=== PATIENT | male | born 1960 | race Caucasian/White ===

== ENCOUNTER 2017-11-06 07:59 | Inpatient (IN) | payer BC, OTHER ==
[2017-10-05 08:17] VITALS: BMI 35.0
--- NOTE | 2017-10-05 08:57 | PAT Medication Instructions ---
Service Date Oct 05, 2017. Current Home Medication List Albuterol Hfa (Ventolin Hfa), 2-4 PUFFS INH Q6H PRN for SOB/Wheezing Enbhvna-Hzefdtsqbfrri-Jxzkpuov (Excedrin Extra Strength), 1 TAB PO Q6 PRN for Pain Diclofenac (Voltaren), 75 MG PO 1-2XWK PRN for Pain Jeblcsekoin-Uatxrmhziys-Kqr C- (Glucosamine Chondroitin), 1 CAP PO QAM Minocycline HCl (Minocycline HCl), 50 MG PO 3XWK Multiple Vitamin (Multivitamin), 1 TAB PO QAM [Zinc], 50 MG PO QAM Medication Instructions For Your Scheduled Surgery - Hold the following medications 2 weeks prior to surgery: Dmcvudoohqv-Izojgxfcskn-Mje C- (Glucosamine Chondroitin), 1 CAP PO QAM - Hold the following medications at least 3 days prior to surgery: Kyslovc-Qiawjsuxdiuxb-Ozluhbfa (Anacin), 1 TAB PO Q6 PRN for Pain - Hold the following medications the morning of surgery: Multiple Vitamin (Multivitamin), 1 TAB PO QAM [Zinc], 50 MG PO QAM Diclofenac (Voltaren), 75 MG PO 1-2XWK PRN for Pain (otherwise okay to continue per surgeon) - Take the following medications the morning of surgery with a sip of water OTHERWISE NOTHING TO EAT OR DRINK AFTER MIDNIGHT: Albuterol Hfa (Ventolin Hfa), 2-4 PUFFS INH Q6H PRN for SOB/Wheezing (USE IF NEEDED; BRING TO HOSPITAL) Minocycline HCl (Minocycline HCl), 50 MG PO 3XWK - Take the following medications as scheduled the night before surgery: Albuterol Hfa (Ventolin Hfa), 2-4 PUFFS INH Q6H PRN for SOB/Wheezing If you have any questions please call us at [phone] or [phone] or [phone]
--- NOTE | 2017-10-05 09:44 | DIAGNOSTIC IMAGING REPORT ---
CHEST 2 VIEWS ROUTINE HISTORY: 57 years-old Male PAT preoperative exam. No acute chest complaints. COMPARISON: Chest radiographs 05/31/2009 TECHNIQUE: PA and lateral views of the chest FINDINGS: Linear subsegmental bibasilar opacities. No pneumothorax, pleural effusion or lobar airspace consolidation. Cardiomediastinal and hilar silhouettes are within normal limits. Mild right hemidiaphragmatic elevation. Bones of the chest appear grossly intact. Cholecystectomy clips noted. IMPRESSION: Linear subsegmental bibasilar atelectasis without acute cardiopulmonary process. The above report was generated using voice recognition software. It may contain grammatical, syntax or spelling errors. Electronically signed by: Garcia Bar M.D. 10/05/2017 9:43 AM Dictated Date/Time: 10/05/2017 9:42 AM
[2017-10-05 09:57] LABS: BASO % 0.6 %; BASO ABS # 0.03 K/uL (0-0.2); EOS % 3.1 %; EOS ABS # 0.15 K/uL (0-0.5); HEMATOCRIT 45.8 % (42-52); HEMOGLOBIN 15.7 g/dL (14.0-18.0); LYMPH % 24.4 %; LYMPH ABS # 1.17 K/uL (1.2-3.4); MEAN CELL VOLUME 93.7 fL (80-100); MEAN CORPUSCULAR HEMOGLOBIN 32.1 pg (25-34); MEAN CORPUSCULAR HGB CONC 34.3 g/dl (32-36); MEAN PLATELET VOLUME 11.7 fL (7.4-10.4); MONO % 9.4 %; MONO ABS # 0.45 K/uL (0.11-0.59); NEUT % 62.5 %; NEUT ABS # 2.99 K/uL (1.4-6.5); PLATELET COUNT 174 K/uL (130-400); RED CELL DISTRIBUTION WIDTH CV 12.2 % (11.5-14.5); RED CELL DISTRIBUTION WIDTH SD 41.9 fL (36.4-46.3); WHITE BLOOD COUNT 4.79 K/uL (4.8-10.8)
[2017-10-05 10:07] LABS: INR 1.1 (0.9-1.1); PTT PATIENT 26.3 SECONDS (21.0-31.0)
[2017-10-05 10:59] LABS: CALCIUM 9.7 mg/dl (8.5-10.1); CREATININE 0.93 mg/dl (0.60-1.40); POTASSIUM 4.3 mmol/L (3.5-5.1)
--- NOTE | 2017-11-01 21:17 | HISTORY & PHYSICAL EXAMINATION ---
DATE OF ADMISSION: 11/06/2017 CHIEF COMPLAINT: Bilateral knee pain and discomfort, left side greater than right. HISTORY OF PRESENT ILLNESS: The patient is a 57-year-old gentleman who now presents for surgical treatment of his left knee. He has a long history of bilateral knee pain and discomfort. He has had a knee arthroscopy in both sides in the past. He continues to be bothered by knee pain. He has had injections which provide a little bit more relief to the right side than the left. He is limited in his activities. He cannot walk or hike like he would like to do the pain. He has good and bad days but have more and more bad days. It is limiting his lifestyle. He would like to proceed with surgery. He does take some diclofenac, which takes the edge off it at best. He has tried different anti-inflammatories with less relief. PAST MEDICAL HISTORY: 1. Asthma. 2. TMJ. 3. Neck arthritis. 4. Kidney stones. PAST SURGICAL HISTORY: Includes: 1. Cholecystectomy. 2. Left knee arthroscopy. 3. Right knee arthroscopy. 4. Foot surgery. ALLERGIES: PENICILLIN. CURRENT MEDICATIONS: Include: 1. Ventolin inhaler. 2. Diclofenac. 3. Minocycline. SOCIAL HISTORY: A 57-year-old male. He does not smoke. Two drinks per week. FAMILY HISTORY: Negative for heart disease, diabetes, or blood clots. REVIEW OF SYSTEMS: Negative for diabetes, neurologic problems, vascular problems, bleeding disorders. Denies any chest pain, no shortness of breath. No history of DVT or PE. PHYSICAL EXAMINATION: GENERAL: Physical examination reveals a healthy, pleasant, middle-aged male. He looks to be in good health. HEENT: Benign. NECK: Supple. No lymphadenopathy. LUNGS: Clear to auscultation. HEART: Regular rate and rhythm. ABDOMEN: Soft, nontender, nondistended. EXTREMITIES: Grossly neurovascularly intact except as follows: Examination of the left knee reveals patient ambulates independently. He has slight varus alignment to his knee. He has well healed portal sites from his knee arthroscopy. Range of motion is about 5-120. No instability. No pain with hip motion. X-RAYS: X-ray of the left knee reviewed. It shows advanced left knee DJD. He has complete loss of his medial joint space. He has osteophytes of the medial femoral condyle and medial tibial plateau. ASSESSMENT: A 57-year-old male with a history of bilateral knee arthroscopy in the past with advanced bilateral knee degenerative joint disease, left side more symptomatic than right. He would like to have his left knee replaced. He has failed conservative treatment and is affecting his lifestyle. PLAN: We will take him to the operating room and do a left total knee replacement. The risks and benefits of this procedure were explained to the patient including but not limited to DVT, PE, , infection, neurological injury, vascular injury, bleeding problems, pain, limited range of motion, stiffness, failure to relieve the symptoms, incomplete relief of symptoms, need for further surgery in the future, fracture, leg length inequality, nerve palsy, persistent pain, etc. The patient understands and desires to proceed. Informed consent was obtained. As far as discharge plans, he is planning to be discharged to home. He apparently does not have [employer] privileges.
[2017-11-06] VITALS (9 sets, daily range): BP systolic 110–154; BP diastolic 67–85; PULSE 48–60; TEMP 36.4–37.1; O2SAT 94–100; Ht 182.9 cm; Wt 119.2 kg
[~2017-11-06] VITALS: Ht 182.9 cm; Wt 119.2 kg
[~2017-11-06 07:59] MED LIST: ACETAMINOPHEN 500 MG TAB PO SCH; ASPI-391 PO; BUPIVACAINE 0.25% 30 ML VIAL ONE; BUPIVACAINE 0.5 % 5 MG/1 ML PF 10ML VIAL ONE; BUPIVACAINE LIPOSOME 266 MG, BUPIVACAINE/EPINEPHRINE INJ 50 ML, SODIUM CHLORIDE 0.9% PF... INFIL SCH; CEFAZOLIN 2000MG IV PUSH 15 ML IV SCH; DEXAMETHASONE SOD INJ 4 MG/ML VIAL ONE; DICL-201 PO; EpINEphrine INJ 1MG/ML AMP 1 MG/ML AMP ONE; FAMOTIDINE 20 MG TAB PO SCH; FENTANYL CITRATE INJ 50 MCG/1 ML 2 ML VIAL ONE; GABAPENTIN 300 MG CAP PO SCH; GLUC1CAP35 PO; LACTATED RINGER'S 1000ML 1,000 ML IV SCH; LACTATED RINGER'S 1000ML IV SCH; LACTATED RINGER'S 500 ML IV SCH; METOCLOPRAMIDE HCL 10 MG TAB PO SCH; MIDAZOLAM HCL 1 MG/ML 2ML VIAL ONE; MNC50 PO; MULTTAB58 PO; SCOPOLAMINE 1.5 MG TDSY TD SCH; TRANEXAMIC ACID INJ 1,000 MG in SYRINGE 0 ML IV SCH; VNTHFA/IN INH; ZINC PO
--- NOTE | 2017-11-06 08:39 | History & Physical Bridge Note ---
H&P Re-Evaluation Bridge Note: I have examined the patient, reviewed the History & Physical and in the interval since the performance of the History & Physical I have noted the following changes of clinical significance: No changes noted
[2017-11-06] MEDS ORDERED: LIDOCAINE HCL 2% 2 ML VIAL (20MG/ML) ONE (09:52)
[2017-11-06] MEDS ORDERED: ONDANSETRON INJ 2 MG/ML 2 ML VIAL ONE (09:52)
[2017-11-06] MEDS ORDERED: PROPOFOL IV EMULSION 10 MG/ML 20 ML VIAL IV ONE (09:52)
[2017-11-06] MEDS ORDERED: FENTANYL CITRATE INJ 50 MCG/1 ML 2 ML VIAL ONE (11:00)
[2017-11-06] MEDS ORDERED: BUPIVACAINE LIPOSOME 1/3% 266 MG/20 ML VIAL INFIL ONE (11:09)
[2017-11-06] MEDS ORDERED: BACITRACIN 50000 UNIT VIAL ONE (11:09)
[2017-11-06] MEDS ORDERED: BUPIVACAINE/EPINEPHRINE 0.25% 1:200,000 30 ML VIAL ONE (11:09)
[2017-11-06] MEDS ORDERED: SODIUM CHLORIDE 0.9% PF 50 ML VIAL ONE (11:09)
[2017-11-06] MEDS ORDERED: FENTANYL CITRATE INJ 50 MCG/1 ML 2 ML VIAL IV PRN (11:30)
[2017-11-06] MEDS ORDERED: EpHEDrine SULFATE INJ 50 MG/ML AMP IV PRN (11:30)
[2017-11-06] MEDS ORDERED: ATROPINE SULFATE 0.1 MG/ML 5ML SYR IV PRN (11:30)
[2017-11-06] MEDS ORDERED: ONDANSETRON INJ 2 MG/ML 2 ML VIAL IV PRN ×2 (11:30→13:15)
[2017-11-06] MEDS ORDERED: MIDAZOLAM HCL 1 MG/ML 2ML VIAL ONE (11:44)
[2017-11-06] MEDS ORDERED: EpHEDrine SULFATE 50MG/5ML SYR ONE (12:30)
--- NOTE | 2017-11-06 13:05 | [facility] Post Operative Brief Note ---
Immediate Operative Summary Operative Date Nov 06, 2017. Pre-Operative Diagnosis Advanced left knee degenerative joint disease. Post-Operative Diagnosis Advanced left knee degenerative joint disease. Procedure(s) Performed Left total knee arthroplasty. Surgeon Dr. Avila Dat Instructor Surgeon(s) Yony Pate PA-C Estimated Blood Loss 50ML Findings Consistent with Post-Op Diagnosis Fluids (cc crystalloids) 1300 cc Specimens A. Left knee bone and tissue. Drains None Anesthesia Type MAC Spinal Regional Complication(s) none Disposition Accompanied Pt To Recover: no Disposition: Recovery Room / PACU
[2017-11-06] MEDS ORDERED: MAGNESIUM HYDROXIDE SUSP 30 ML UDC PO PRN (13:15)
[2017-11-06] MEDS ORDERED: ZOLPIDEM TARTRATE 5 MG TAB PO PRN (13:15)
[2017-11-06] MEDS ORDERED: TAMSULOSIN HCL 0.4 MG CAP PO PRN (13:15)
[2017-11-06] MEDS ORDERED: SILVER SULFADIAZINE 1% CR 50 GM JAR EXT PRN (13:15)
[2017-11-06] MEDS ORDERED: ALBUTEROL HFA 8 GM INHALER INH PRN (13:15)
[2017-11-06] MEDS ORDERED: DiphenhydrAMINE HCL 50 MG/ML VIAL IV PRN (13:15)
[2017-11-06] MEDS ORDERED: ALUMINUM/MAGNESIUM/SIMETH (MAALOX MAX) 30 ML UDC PO PRN (13:15)
[2017-11-06] MEDS ORDERED: MoRPHine SULFATE 2 MG/ML CARP IV PRN (13:15)
[2017-11-06] MEDS ORDERED: METOCLOPRAMIDE HCL INJ 5 MG/ML 2 ML VIAL IV PRN (13:15)
[2017-11-06] MEDS ORDERED: BISACODYL 10 MG SUPP PR PRN (13:15)
--- NOTE | 2017-11-06 13:44 | DIAGNOSTIC IMAGING REPORT ---
TWO VIEWS LEFT KNEE CLINICAL HISTORY: Postoperative examination. FINDINGS: AP and crosstable lateral portable views of the left knee are obtained. A left knee arthroplasty is in near anatomic alignment. There has been undersurface remodeling of the patella. No acute fracture is seen. There are expected postoperative changes around the knee including skin clips, soft tissue edema, and subcutaneous gas. IMPRESSION: Expected postoperative changes status post left knee arthroplasty. No acute fracture is seen. Electronically signed by: Kyle Bowman M.D. 11/06/2017 1:43 PM Dictated Date/Time: 11/06/2017 1:43 PM
--- NOTE | 2017-11-06 13:53 | Anesthesiology Progress Note ---
Anesthesia Post Op Note Date & Time Nov 06, 2017 at 13:53 Vital Signs Pain Intensity: 0 Vital Signs Past 12 Hours Date Time Temp Pulse Resp B/P (MAP) Pulse Ox O2 Delivery O2 Flow Rate FiO2 11/06/17 13:50 50 13 114/65 99 Nasal Cannula 2 11/06/17 13:40 36.1 51 17 112/65 99 Nasal Cannula 2 11/06/17 13:30 57 17 102/61 99 Nasal Cannula 2 11/06/17 13:20 63 16 111/56 98 Nasal Cannula 2 11/06/17 13:14 36.1 70 19 85/63 96 Nasal Cannula 2 11/06/17 08:35 36.7 57 18 137/81 94 Room Air Notes Mental Status: alert / awake / arousable, participated in evaluation Pt Amnestic to Procedure: Yes Nausea / Vomiting: adequately controlled Pain: adequately controlled Airway Patency, RR, SpO2: stable & adequate BP & HR: stable & adequate Hydration State: stable & adequate Neuraxial Anesthesia: was administered, sensory block is resolving Anesthetic Complications: no major complications apparent
--- NOTE | 2017-11-06 14:49 | OPERATIVE REPORT ---
DATE OF OPERATION: 11/06/2017 SURGEON: Aris Avila MD DATA MINER: EZ Rush PREOPERATIVE DIAGNOSIS: Left knee degenerative joint disease. POSTOPERATIVE DIAGNOSIS: Same. PROCEDURE PERFORMED: Left cemented posterior stabilized total knee arthroplasty. COMPLICATIONS: None. ESTIMATED BLOOD LOSS: 50 mL. FLUID REPLACEMENT: 1300 mL crystalloid fluid replacement. ANESTHESIA: Spinal with adductor canal block. DRAINS: None. SPECIMENS: Left knee sent for pathology. TOURNIQUET TIME: 62 minutes at 300 mmHg. OPERATIVE INDICATIONS: The patient is a 57-year-old very active gentleman who has had a long history of bilateral knee problems. He has had both of his knees scoped in the past. Over the years, he developed increased pain and discomfort in both knees, left side more so than the right. It is really affecting his lifestyle and his ability to going recreational walks in height. He elected to proceed with total knee arthroplasty. OPERATIVE FINDINGS: Operative findings revealed advanced left knee DJD. He had extensive grade 4 changes of the medial side of his knee with a varus deformity to his knee. Osteophytes in all 3 compartments, most severe in the medial side. Moderate-sized knee effusion. OPERATIVE IMPLANTS: Operative implants consisted of: 1. Biomet Vanguard size 70 left posterior stabilized femoral component. 2. Biomet size 79 tibial tray. 3. A 12-mm posterior stabilized polyethylene insert. 4. A 31 x 8 all poly patella. OPERATIVE PROCEDURE: The patient was taken to the operating room, identified and placed on the operative table in the supine position. All contact areas were appropriately padded. IV antibiotics were provided by the anesthesia team. A spinal anesthetic and adductor canal block had been provided in the holding area. Blackwell catheter was placed in the sterile fashion. A left thigh tourniquet was then placed and left lower extremity was then prepped and draped in the usual sterile fashion. The left leg was elevated and exsanguinated with Esmarch and tourniquet was placed at 300 mmHg. An anterior approach to the left knee was then performed through a longitudinal incision centered over the patella. Sharp dissection was carried out through the subcutaneous tissues down to the level of the extensor mechanism. Medial parapatellar arthrotomy incision was made. Some subperiosteal dissection was carried out medially. I did do a pretty extensive medial and posteromedial release due to his flexion contracture preoperatively as well as his fixed varus deformity. The fat pad was resected from beneath the patellar tendon. The lateral patellofemoral ligament was released. The patella was everted and knee was flexed. The osteophytes were taken off the distal femur. The ACL and PCL were then released from the distal femur and the tibia subluxated anteriorly. The external tibial alignment jig was then placed in the anterior face of the tibia and adjusted 14 mm medially. Proximal tibial cut was made just above and flushed with the most deficient aspect of the posteromedial tibial plateau. This did take a fairly large piece off laterally. The osteophytes were removed. The tibia was sized to a size 79. Attention was then drawn to the femur. The distal femur was entered with a sharp drill. Intramedullary canal was suctioned. A left 6-degree valgus cutting guide was placed. The distal femoral cutting block was pinned in place. Distal femoral cut was made to take an additional 3 mm of bone off the distal femur. The femur was then sized to a size 70. It was downsized slightly. The AP cutting block was pinned parallel to the epicondylar axis, which was 5 degrees of external rotation. The anterior cut, anterior chamfer, posterior cut, and posterior chamfer cuts were made. Box cutting guide was placed and adjusted slightly lateral and the box cut was made. The knee was flexed. The remnants of the medial and lateral menisci were excised. The osteophytes were taken off the posterior aspect of the femur. Trial femoral component was placed. Tibial tray was pinned in maximum external rotation and the drill and stem punch were used to create defect in proximal tibia for the tibial tray. The knee was then trialed and the 12-mm insert fit most appropriately. Attention was then drawn to the patella. The patella was cleaned of all soft tissues. Patella thickness measured 22 mm in thickness and it was cut down to about 13. It was sized to a size 31 patella. It was fairly oblong and we had to really kind of downsize this to be fit on the patella. The lug holes were drilled for the 31 patella. The lateral osteophyte was removed. Patella button was placed. Knee was taken through range of motion and the patella tracked nicely with no thumbs test. Attention was then drawn toward placement of permanent components. All trial components were removed. A bone plug was placed in the distal femur to limit blood loss. A double batch of Palacos G cement was mixed. A left size 70 posterior stabilized femoral component, size 79 tibial tray, a 12-mm posterior stabilized polyethylene insert, and a 31 x 8 all poly patella then cemented in place. Knee was brought out into full extension until cement hardened. A final cement check was then performed. Pericapsular tissues were injected with a total of 100 mL of a combination of 20 mL of Exparel, 30 mL of normal saline, and 50 mL of 0.25% Marcaine with epinephrine. The patient did receive 1 gram of tranexamic acid. The tourniquet was then let down for a tourniquet time of 62 minutes. Hemostasis was assured with the use of electrocautery. The wound was once again irrigated. The extensor mechanism was then closed with a combination of #1 PDS suture and #1 Vicryl suture in a [id number] fashion. Extensor mechanism was checked and found to be intact. The subcutaneous tissues were then closed with 2-0 Dexon suture in a buried interrupted fashion. Skin was closed with skin ryan. Leg was then cleaned and dried and a sterile dressing of Xeroform, 4 x 4, sterile cast padding and Angel bandage were applied. The patient was then transferred to the recovery room in stable condition. The patient tolerated the procedure well with no complications. All needle and sponge counts were correct at the end of the operation. I attest to the content of the Intraoperative Record and any orders documented therein. Any exception s are noted below.
[2017-11-06] MEDS: D5W AND 1/2NSS + 20MEQ KCL 1,000 ML IV SCH ×2 (15:34→22:07)
[2017-11-06] MEDS: CHECK SCOPOLAMINE PATCH PLACEMENT SCH (15:34)
[2017-11-06] MEDS: [UNRECOGNIZED DRUG - OTHER] SCH (15:35)
[2017-11-06] MEDS: KETOROLAC TROMETHAMINE 30 MG/ML VIAL IV. SCH ×2 (16:12→22:07)
[2017-11-06] MEDS: OXYCODONE HCL IR 5 MG TAB (IMMEDIATE RELEASE) PO PRN ×2 (17:21→18:24)
[2017-11-06] MEDS: FERROUS GLUCONATE 324 MG TAB PO SCH (18:25)
[2017-11-06] MEDS ORDERED: TRANEXAMIC ACID INJ 1,000 MG in SODIUM CHLORIDE 0.9% 100ML 100 ML IV SCH (19:00)
[2017-11-06] MEDS: CEFAZOLIN IV 2,000 MG in SYRINGE 0 ML IV SCH (20:07)
[2017-11-06] MEDS: DOCUSATE SODIUM 100 MG CAP PO SCH (20:42)
[2017-11-06] MEDS: ASPIRIN 325 MG ECTAB PO SCH (20:42)
[2017-11-06] MEDS: TAPENTADOL ER 50 MG TABCR PO SCH (20:42)
[2017-11-06] MEDS: SENNA 8.6 MG TAB PO SCH (20:43)
[2017-11-07] VITALS (7 sets, daily range): BP systolic 105–131; BP diastolic 66–82; PULSE 47–65; TEMP 36.7–37; O2SAT 94–99
[2017-11-07] MEDS: CEFAZOLIN IV 2,000 MG in SYRINGE 0 ML IV SCH (03:58)
[2017-11-07] MEDS: KETOROLAC TROMETHAMINE 30 MG/ML VIAL IV. SCH ×4 (03:58→21:33)
[2017-11-07] MEDS: D5W AND 1/2NSS + 20MEQ KCL 1,000 ML IV SCH ×2 (04:42→11:29)
[2017-11-07 07:48] LABS: HEMATOCRIT 39.5 % (42-52); HEMOGLOBIN 13.4 g/dL (14.0-18.0); MEAN CELL VOLUME 93.2 fL (80-100); MEAN CORPUSCULAR HEMOGLOBIN 31.6 pg (25-34); MEAN CORPUSCULAR HGB CONC 33.9 g/dl (32-36); MEAN PLATELET VOLUME 11.2 fL (7.4-10.4); PLATELET COUNT 146 K/uL (130-400); RED CELL DISTRIBUTION WIDTH CV 12.5 % (11.5-14.5); RED CELL DISTRIBUTION WIDTH SD 42.1 fL (36.4-46.3); WHITE BLOOD COUNT 10.75 K/uL (4.8-10.8)
--- NOTE | 2017-11-07 07:54 | PROGRESS NOTE ---
DATE: 11/07/2017 SUBJECTIVE: A 57-year-old gentleman postop day 1 from a left knee replacement. He is doing pretty well. Pain is controlled. Had a pretty good night. No chest pain or shortness of breath. Not feeling dizzy or lightheaded. OBJECTIVE: VITAL SIGNS: Temperature 36.8. Vital signs stable. GENERAL: Reveals a healthy, pleasant, middle-aged male. He is lying in bed, looks pretty comfortable. EXTREMITIES: Examination of the left leg reveals the dressing to be clean, dry and intact. No drainage. He can dorsiflex and plantarflex his foot appropriately. He can do a good straight leg raise. LABORATORY DATA: Labs are pending. ASSESSMENT: A 57-year-old gentleman postop day 1 from a left knee replacement, doing well. Pain is controlled. He is neurologically intact. PLAN: 1. DVT prophylaxis including thigh-high TEDs, SCDs, and aspirin twice a day. 2. PT/OT. Weight bear as tolerated. Left total knee protocol. 3. Pain control, doing well with current pain regimen. 4. Disposition: Plan to discharge to home. His going to do outpatient therapy once medically recovered and stable.
[2017-11-07] MEDS: CHECK SCOPOLAMINE PATCH PLACEMENT SCH ×4 (08:00→23:39)
[2017-11-07] MEDS: [UNRECOGNIZED DRUG - OTHER] SCH ×4 (08:00→23:39)
[2017-11-07 08:28] LABS: CALCIUM 8.6 mg/dl (8.5-10.1); CREATININE 0.96 mg/dl (0.60-1.40); POTASSIUM 4.3 mmol/L (3.5-5.1)
[2017-11-07] MEDS: MULTIVITAMIN TAB PO SCH (08:28)
[2017-11-07] MEDS: ASPIRIN 325 MG ECTAB PO SCH ×2 (08:28→21:32)
[2017-11-07] MEDS: DOCUSATE SODIUM 100 MG CAP PO SCH ×2 (08:28→21:33)
[2017-11-07] MEDS: ZINC SULFATE 220 MG CAP PO SCH (08:28)
[2017-11-07] MEDS: FERROUS GLUCONATE 324 MG TAB PO SCH ×3 (08:28→17:49)
[2017-11-07] MEDS: PANTOprazole SOD 40 MG TAB PO SCH (08:29)
[2017-11-07] MEDS: TAPENTADOL ER 50 MG TABCR PO SCH ×2 (08:32→21:31)
[2017-11-07] MEDS: OXYCODONE HCL IR 5 MG TAB (IMMEDIATE RELEASE) PO PRN ×3 (08:32→20:13)
[2017-11-07] MEDS ORDERED: MULTIVITAMIN TAB PO SCH (09:00)
--- NOTE | 2017-11-07 10:09 | Anesthesiology Progress Note ---
Anesthesia Post Op Note Date & Time Nov 07, 2017 at 10:08 Vital Signs Pain Intensity: 2.0 Vital Signs Past 12 Hours Date Time Temp Pulse Resp B/P (MAP) Pulse Ox O2 Delivery O2 Flow Rate FiO2 11/07/17 07:40 Room Air 11/07/17 07:18 36.8 56 17 105/67 (80) 96 Room Air 11/07/17 03:04 36.9 47 16 119/67 (84) 96 Room Air 11/07/17 00:15 94 Room Air 11/06/17 23:09 36.7 53 16 110/67 (81) 96 Room Air 11/06/17 22:30 51 Notes Mental Status: alert / awake / arousable, participated in evaluation Pt Amnestic to Procedure: Yes Nausea / Vomiting: adequately controlled Pain: adequately controlled Airway Patency, RR, SpO2: stable & adequate BP & HR: stable & adequate Hydration State: stable & adequate Neuraxial Anesthesia: was administered, sensory block resolved Anesthetic Complications: no major complications apparent
[2017-11-07] MEDS ORDERED: ACET-24 PO (11:24)
[2017-11-07] MEDS ORDERED: ASPEC325 PO (11:24)
[2017-11-07] MEDS ORDERED: RXC5 PO (11:24)
--- NOTE | 2017-11-07 11:26 | Discharge Instructions ---
Discharge Instructions Date of Service Nov 07, 2017. Admission Reason for Admission: Left Knee Degenerative Joint Disease Discharge Discharge Diagnosis / Problem: Left Knee Replacement Discharge Goals Goal(s): Decrease discomfort, Improve function, Increase independence, Improve disease control, Therapeutic intervention Activity Recommendations Activity Limitations: per Instructions/Follow-up section Weightbearing Status: Left weightbearing . Instructions / Follow-Up Instructions / Follow-Up ACTIVITY RECOMMENDATIONS: Physical Therapy: * You will go to physical therapy three times each week for four to six weeks after your surgery in order to regain your knee range of motion and to retrain your knee to work properly. * It is just as important to make sure you are getting your knee perfectly straight as it is to regain your knee bend. * Taking a pain pill an hour before therapy can help you have a more productive and comfortable therapy session. Home Exercise: * You were shown a series of exercises (heel props, heel slides, etc.) in the hospital. Do these exercises three to four times each day including the exercises you were shown in physical therapy. Walking: * Get up and walk several times each day. For the first four weeks, try not to stand or walk for more than one hour at a time. If you do stand or walk for more than one hour, you will not hurt anything, but your knee and leg will likely swell. * As you feel comfortable, you may change from the walker or crutches to a cane and then to independent walking. MEDICATIONS: New Medicine: * You will likely be taking one or more of these medications: 1. Oxycodone - A quick and shorter-acting pain medication. Take one to two tablets every four to six hours to lessen your pain. 2. Aspirin - Thins your blood to lessen the chance of forming a blood clot. * The most common side effects of pain medicine and iron are nausea and constipation. If nausea or constipation is too much of a problem or if you have any questions about your new medicines or doses, call [facility] at [phone]. We will try to help you manage these issues. VERY IMPORTANT TO READ AND REVIEW" Pain: * The immediate post-operative period after knee replacement surgery is often quite painful. * You are given a prescription for pain medicine. You should take it, as directed, when you need it, especially before physical therapy and before going to bed. Pain that interferes with sleep is very common and can last several months. * You will likely need pain medicine for the first four to six weeks. It will not stop all of the pain. The pain will lessen and as you feel better, you may change to milder pain medicine such as Tylenol. * The most common side effects of pain medicine are nausea and constipation, so don't take more than you need. SPECIAL CARE INSTRUCTIONS: TEDs/Elastic Stockings: * The white elastic stockings help limit swelling and prevent blood clots from forming in your legs. The more you wear them, the more they work. * Wear them for six weeks after knee replacement surgery and four weeks after partial knee replacement. Prevention of Infection: * Take antibiotics one hour before any dental cleaning, dental work, urological procedure, gastrointestinal procedure or any invasive surgery in order to prevent your new joint from getting infected. * You may get the antibiotics from the doctor performing the procedure or you may call our office at before and we will call in a prescription to the pharmacy of your choice. Things to Watch For: * Drainage from the incision site that occurs more than one week after your surgery. * Severely increased knee/leg pain or swelling. * Increased redness at the incision site. * Fever above 102 degrees Fahrenheit. * Unusual chest pain or shortness of breath. * Unusual pain or burning with urination. Call [facility] at with any of the above problems or if you have any questions about your medicines or recovery. FOLLOW UP VISIT: Make an appointment to see your doctor for approximately two weeks after surgery for a progress check and staple removal by calling the office at . Current Hospital Diet Patient's current hospital diet: Regular Diet Discharge Diet Recommended Diet: Regular Diet Procedures Procedures Performed: Left total knee arthroplasty. Pending Studies Studies pending at discharge: no Medical Emergencies . Who to Call and When: Medical Emergencies: If at any time you feel your situation is an emergency, please call [phone] immediately. . Non-Emergent Contact Non-Emergency issues call your: Surgeon . "Provider Documentation" section prepared by Aris Avila. . VTE Core Measure Inpt VTE Proph given/why not?: Other Anticoagulation, T.E.D. Stockings, SCD's
[2017-11-07] MEDS: ACETAMINOPHEN 500 MG TAB PO SCH (17:49)
[2017-11-07] MEDS: SENNA 8.6 MG TAB PO SCH (21:32)
[2017-11-08] MEDS: ACETAMINOPHEN 500 MG TAB PO SCH ×2 (01:30→09:27)
[2017-11-08] MEDS: KETOROLAC TROMETHAMINE 30 MG/ML VIAL IV. SCH ×2 (03:47→09:28)
[2017-11-08 06:31] VITALS: BP 110/82; PULSE 66; TEMP 36.8; O2SAT 98
--- NOTE | 2017-11-08 07:39 | PROGRESS NOTE ---
DATE: 11/08/2017 SUBJECTIVE: A 57-year-old gentleman postop day #2 from a left knee replacement. He is doing well. Pain is controlled. Therapy has gone well. No chest pain or shortness of breath. OBJECTIVE: VITAL SIGNS: Temperature 36.8. Vital signs stable. GENERAL: Reveals a healthy, pleasant, middle-aged male. He is sitting up in bed and looks pretty comfortable. Doing a heel prop. EXTREMITIES: Examination of the left leg reveals the dressing to be clean, dry and intact. Leg is well aligned. He can dorsiflex and plantarflex his foot appropriately. NEUROLOGICAL: He is neurologically intact. ASSESSMENT: A 57-year-old gentleman postop day #2 from a left knee replacement, doing well. His pain is controlled. PLAN: 1. DVT prophylaxis including thigh-high TEDs, SCDs, and aspirin twice a day. 2. PT/OT. Weightbear as tolerated. Left total knee protocol. 3. Doing pretty well with current pain regimen. 4. Disposition: Plan to discharge to home. He is going to outpatient therapy later today.
[2017-11-08] MEDS: CHECK SCOPOLAMINE PATCH PLACEMENT SCH (07:47)
[2017-11-08] MEDS: [UNRECOGNIZED DRUG - OTHER] SCH (07:47)
[2017-11-08] MEDS: FERROUS GLUCONATE 324 MG TAB PO SCH (07:48)
[2017-11-08] MEDS: DOCUSATE SODIUM 100 MG CAP PO SCH (07:48)
[2017-11-08] MEDS: MULTIVITAMIN TAB PO SCH (07:48)
[2017-11-08] MEDS: PANTOprazole SOD 40 MG TAB PO SCH (07:49)
[2017-11-08] MEDS: ASPIRIN 325 MG ECTAB PO SCH (07:49)
[2017-11-08] MEDS: ZINC SULFATE 220 MG CAP PO SCH (07:49)
[2017-11-08] MEDS: TAPENTADOL ER 50 MG TABCR PO SCH (07:54)
[2017-11-08] MEDS: OXYCODONE HCL IR 5 MG TAB (IMMEDIATE RELEASE) PO PRN (07:54)
[2017-11-08 08:11] VITALS: BP 110/82; PULSE 66; TEMP 36.8; O2SAT 98
== END 2017-11-08 10:42 | disposition home or self-care (01) | DRG 470 ==
LOC: C.ACU 07:59 → C.3E 09:02 → ENRESERV 13:43
PROVIDERS: ADMIT Orthopaedic Surgery Sports Medicine; ATTEND Orthopaedic Surgery Sports Medicine
PROC: 0SRD0J9 Replacement of Left Knee Joint with Synthetic Substitute, Cemented, Open Approach (ICD-10-PCS; principal; 2017-11-06 10:50)
DX: M17.0 Bilateral primary osteoarthritis of knee (principal); J45.909 Unspecified asthma, uncomplicated; Z79.899 Other long term (current) drug therapy; Z79.1 Long term (current) use of non-steroidal anti-inflammatories (NSAID); Z88.0 Allergy status to penicillin

== ENCOUNTER 2023-12-11 09:17 | Observation (INO) ==
--- NOTE | 2023-11-26 10:36 | PAT Medication Instructions ---
Medication Instructions Date of Service November 26, 2023 Home Medications Medication Instructions Recorded clindamycin HCl 300 mg capsule 600 mg (2 x 300 mg) PO ONCE #2 caps 05/14/23 diclofenac sodium 75 mg tablet,delayed release 75 mg PO 4XWK PRN glucosamine sulf dipot chlr,msm,chond 550 mg-C 30 mg-damien 1 mg capsule (Glucosamine Chondroitin) 1 cap PO QAM ibuprofen 200 mg tablet 200 mg PO Q6H PRN multivitamin 1 tab PO QAM zinc 50 mg tablet 50 mg PO QAM Lactobacillus acidophilus 10 billion cell capsule (Probiotic) 10,000 mmu cells PO QAM albuterol 90 mcg/actuation aerosol inhaler 90 mcg inhalation Q4H PRN aspirin 81 mg tablet 81 mg PO QAM docusate sodium 100 mg capsule (Colace) 100 mg PO QAM clindamycin HCl 300 mg capsule 600 mg (2 x 300 mg) PO ONCE ascorbic acid (vitamin C) 1,000 mg tablet (Vitamin C) 1 g PO QAM Continue as directed clindamycin HCl 300 mg capsule 600 mg (2 x 300 mg) PO ONCE ASK your surgeon for instructions diclofenac sodium 75 mg tablet,delayed release 75 mg PO 4XWK PRN ibuprofen 200 mg tablet 200 mg PO Q6H PRN ASK your prescriber and surgeon aspirin 81 mg tablet 81 mg PO QAM STOP taking 2 weeks before surgery (or as soon as possible if surgery is within 2 weeks) glucosamine sulf dipot chlr,msm,chond 550 mg-C 30 mg-damien 1 mg capsule (Glucosamine Chondroitin) 1 cap PO QAM DO NOT take the morning of surgery multivitamin 1 tab PO QAM zinc 50 mg tablet 50 mg PO QAM Lactobacillus acidophilus 10 billion cell capsule (Probiotic) 10,000 mmu cells PO QAM docusate sodium 100 mg capsule (Colace) 100 mg PO QAM ascorbic acid (vitamin C) 1,000 mg tablet (Vitamin C) 1 g PO QAM Take morning of surgery With a small sip of water, OTHERWISE NOTHING TO EAT OR DRINK AFTER MIDNIGHT: albuterol 90 mcg/actuation aerosol inhaler 90 mcg inhalation Q4H PRN(use if needed; please bring with you to hospital day of surgery if possible) Take evening before surgery albuterol 90 mcg/actuation aerosol inhaler 90 mcg inhalation Q4H PRN(if needed) Other Notes If you have any questions please call us at [phone] or [phone] or [phone] or [phone]
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
[~2023-12-11 09:17] MED LIST changes: -ACETAMINOPHEN 500 MG TAB PO SCH; -ASPI-391 PO; -BUPIVACAINE 0.25% 30 ML VIAL ONE; -BUPIVACAINE 0.5 % 5 MG/1 ML PF 10ML VIAL ONE; -BUPIVACAINE LIPOSOME 266 MG, BUPIVACAINE/EPINEPHRINE INJ 50 ML, SODIUM CHLORIDE 0.9% PF... INFIL SCH; -CEFAZOLIN 2000MG IV PUSH 15 ML IV SCH; -DEXAMETHASONE SOD INJ 4 MG/ML VIAL ONE; -DICL-201 PO; -EpINEphrine INJ 1MG/ML AMP 1 MG/ML AMP ONE; -FAMOTIDINE 20 MG TAB PO SCH; -FENTANYL CITRATE INJ 50 MCG/1 ML 2 ML VIAL ONE; -GABAPENTIN 300 MG CAP PO SCH; -GLUC1CAP35 PO; -LACTATED RINGER'S 1000ML 1,000 ML IV SCH; -LACTATED RINGER'S 1000ML IV SCH; -LACTATED RINGER'S 500 ML IV SCH; -METOCLOPRAMIDE HCL 10 MG TAB PO SCH; -MIDAZOLAM HCL 1 MG/ML 2ML VIAL ONE; -MNC50 PO; -MULTTAB58 PO; +ROPIVACAINE 0.5% 5 MG/ML 30 ML VIAL ONE; -SCOPOLAMINE 1.5 MG TDSY TD SCH; -TRANEXAMIC ACID INJ 1,000 MG in SYRINGE 0 ML IV SCH; -VNTHFA/IN INH; -ZINC PO
[2023-12-11] MEDS ORDERED: PROPOFOL IV EMULSION 10 MG/ML 20 ML VIAL IV ONE ×3 (09:34→12:46)
[2023-12-11] MEDS ORDERED: MIDAZOLAM HCL 1 MG/ML 2ML VIAL ONE (09:34)
[2023-12-11] MEDS: ACETAMINOPHEN 500 MG TAB PO SCH ×2 (09:58→14:46)
[2023-12-11] MEDS: Scopolamine 1 MG TDSY TD SCH (09:59)
[2023-12-11] MEDS: dexAMETHasone**PF** 10 MG/ML VIAL IV SCH (09:59)
[2023-12-11] MEDS: CeleBREX 200 MG CAP PO SCH (09:59)
[2023-12-11] MEDS: FAMOTIDINE 20 MG TAB PO SCH (09:59)
[2023-12-11] MEDS: LR 60ML/HR IV SCH (10:00)
[2023-12-11] MEDS: LR 500ML BOLUS, THEN 15ML/HR IV SCH (10:01)
[2023-12-11] MEDS: METOCLOPRAMIDE HCL 10 MG TABLET PO SCH (10:10)
[2023-12-11] MEDS ORDERED: ePHEDrine sulfate 50 MG/ML AMP IV PRN (10:13)
[2023-12-11] MEDS ORDERED: ATROPINE SULFATE 0.1 MG/ML 10ML SYR IV PRN (10:13)
[2023-12-11] MEDS ORDERED: HYDROmorphone INJ 2 MG/ML SYR/VIAL IV PRN (10:13)
[2023-12-11] MEDS ORDERED: ONDANSETRON INJ 2 MG/ML 2 ML VIAL IV PRN ×2 (10:13→14:03)
[2023-12-11] MEDS ORDERED: fentaNYL citrate PF 100 MCG/2 ML VIAL IV PRN (10:13)
--- NOTE | 2023-12-11 10:47 | History & Physical Bridge Note ---
Date of Service December 11, 2023 History & Physical Bridge Note I have examined the patient, reviewed the History & Physical and in the interval since the performance of the History & Physical I have noted the following changes of clinical significance: no changes noted
[2023-12-11] MEDS: ceFAZolin 2000MG 2,000 MG/15 ML SYR IV SCH ×2 (11:13→19:41)
[2023-12-11] MEDS ORDERED: ePHEDrine sulfate 50 MG/5 ML SYR ONE (11:34)
[2023-12-11] MEDS: ORTHO JOINT ANESTHETIC ONE (11:44)
[2023-12-11] MEDS ORDERED: KETOROLAC 30 MG/ML VIAL ONE (11:50)
[2023-12-11] MEDS ORDERED: ONDANSETRON INJ 2 MG/ML 2 ML VIAL ONE (11:50)
[2023-12-11] MEDS: TRANEXAMIC ACID 1,000 MG **IV Intra-op IV SCH (12:12)
[2023-12-11] MEDS: ROPIV 0.5% 246mg, Ketorolac 30mg, EPINEPHrine 0.5mg in NSS INFIL SCH (12:42)
--- NOTE | 2023-12-11 13:04 | Operative Report ---
PG Post Operative Report Pre & Post Diagnosis Operation Date: 12/11/23 10:40 Pre-Op Diagnosis: Right Knee Degenerative Joint Disease Post-Op Diagnosis: Right Knee Degenerative Joint Disease I identified the patient and participated in the time-out.: Yes Procedure Operation Date: 12/11/23 10:40 Actual Procedures p Right Total Knee Arthroplasty(Right) - Aris Avila MD Surgeon Aris Avila MD Environmental Engineering Manager Zafar Pate PA-C Estimated Blood Loss 15 Findings Consistent with Post-Op Diagnosis Operative findings revealed advanced right knee tricompartment DJD. He had grade 4 [id number] disease in all 3 compartments most severe medially with extensive left eburnation medially. Moderate-sized joint effusion. Slight flexion contracture. Fixed varus deformity. Specimens Right knee sent for pathology. Anesthesia Type Spinal MAC Complications none Disposition Accompanied Patient To Recovery: No Indications Patient is a 63-year-old very active gentleman said a long history of knee problems. He had his left knee replaced 6 years or so ago and is done well with this. Continued be limited by right knee pain discomfort that is gradually gotten worse over time. Failed conservative measures. He elected proceed with total knee arthroplasty. Description of Procedure Operative implants consist of: 1. Biomet Vanguard size 72.5 right posterior stabilized femoral component. 2. Biomet size 79 tibial tray. 3. 10 mm post stabilized polyethylene insert. 4. 34 x 8 and half all poly patella. The patient was taken the operating, identified, placed on the operating table in the supine position. All contact areas were appropriately padded. IV antibiotics tried by anesthesia team. A spinal anesthetic and adductor canal block had been provided in the holding area. Right thigh turn was then placed. The right lower extremity was then prepped and draped in usual sterile fashion. The right leg was elevated and exsanguinated with use of an Esmarch and a turn was placed at 300 mmHg. An anterior approach to the right knee was then performed to longitudinal incision centered over the patella. Sharp dissection was carried through subcutaneous tissue down the extensor mechanism. A medial parapatellar arthrotomy incision was made. Some subperiosteal dissection was carried out medially. The fat pad was resected from Neath patella tendon. Lateral patellofemoral ligament was released. Patella subluxated laterally and the knee was flexed. The osteophytes taken on distal femur. The ACL and PCL were then released from the distal femur and the tibia subluxated anteriorly. The external tibial alignment jig was then placed anterior face of the tibia and adjusted 14 mm medially. Proximal tibial cut was made essentially flush with the most deficient aspect of the posterior medial tibial plateau. Some osteophytes taken off medial and posterior medially. The tibia sized to a size 79. Attention drawn the femur. The distal femur where the sharp drop with intramedullary canal was suction. A right 6 degree valgus cutting guide was placed. The distal femoral cutting block was pinned in place. Distal femoral cut was made to take an additional 3 mm of bone off distal femur. The femur was then sized to a size 72.5. The AP cutting block was pinned parallel to the epicondylar axis which was 4 degrees of external rotation. The anterior cut, anterior chamfer, posterior cut, posterior chamfer cuts were made. The box cutting guide was placed in the just slight lateral and the box cut was made. The knee was flexed. The remnants of the medial and lateral menisci were excised. The osteophytes taken off the posterior aspect the femur. A trial femoral component was placed. The tibial tray was pinned Machelle external rotation and the drill and stem punch used to create the defect in proximal tibia for the tibial tray. Knee was then trialed and 10 mm insert fit most appropriately. Attention drawn the patella. The patella is cleaned of all soft tissue. Patella thickness measured 24 mm in thickness was cut down to 14 mm. It was sized to a size 34 patella. The lug holes were drilled for 34 patella. The lateral osteophyte was removed. Patella button was placed. Knee was taken through range of motion patella tracked nicely with no thumbs test. Attention drawn to place the permanent components. Nupathe all trial components were removed. Bone plug was placed in the distal femur limit blood loss. Double batch Palacos G cement was mixed. Biomet Vanguard size 72.5 right Po stabilized femoral component, a size 79 tibial tray, a 10 mm post stabilized polyethylene insert, and a 34 x 8-1/2 all poly patella were then cemented in place. The knee was brought out into full extension till cement hardened. Final cement check was then performed. The pericapsular tissues were injected with total 100 cc of orthopedic joint mix. The patient did receive 1 g tranexamic acid. The tourniquet was then let down for final tourniquet time of 60 minutes. Hemostasis assured use electrocautery. Extensor Meclomen closed with combination 1 PDS suture #1 Vicryl suture in a [id number] fashion. Extensor Meclomen checked found to be intact and subcutaneous tissues then closed with 2 Dexon suture in a buried interrupted fashion skin was closed skin ryan. Leg was then cleaned and dried and sterile dressing with Xeroform, 4 fours, sterile cast padding, Angel bandage were applied. Patient then transferred to the recovery in stable condition. Patient tolerated procedure well and there are no complications. Zafar Pate, my physician temporary administrative assistant, was present for the entire procedure. His assistance was essential and required for appropriate patient positioning, prepping and draping, surgical exposure, performing the technical details of the operation, placement the implants, closure of the wound, and placement of the sterile bandage. I attest to the content of the Intraoperative Record and any orders documented therein. Any exceptions are noted below.
--- NOTE | 2023-12-11 13:26 | Anesthesiology Progress Note ---
Date of Service December 11, 2023 Anesthesia Post Procedure Vital Signs Vital Signs: Temp Pulse Pulse Resp BP Pulse Ox O2 Del Method 12/11/23 13:20 69 14 113/65 96 Room Air 12/11/23 13:10 73 15 115/70 99 Oxymask 12/11/23 13:00 36.4 C L 75 10 L 114/63 96 Oxymask 12/11/23 09:50 36.7 C 62 20 125/81 95 Room Air O2 Flow Rate 12/11/23 13:20 12/11/23 13:10 4 12/11/23 13:00 6 12/11/23 09:50 Transfer of Care Handoff Completed per policy Notes Mental Status: alert / awake / arousable and participated in evaluation Patient Amnestic to Procedure: Yes Nausea / Vomiting: adequately controlled Pain: adequately controlled Airway Patency, RR, SpO2: stable & adequate BP & HR: stable & adequate Hydration State: stable & adequate Neuraxial Anesthesia: was administered and sensory block is resolving Anesthetic Complications: no major complications apparent and Pt Satisfied with anesthetic care
[2023-12-11] MEDS ORDERED: ALUMINUM/MAGNESIUM SUSP 30 ML UDC PO PRN (14:03)
[2023-12-11] MEDS ORDERED: METOCLOPRAMIDE HCL INJ 5 MG/ML 2 ML VIAL IV PRN (14:03)
[2023-12-11] MEDS ORDERED: bisacodyL 10 MG SUPP PR PRN (14:03)
[2023-12-11] MEDS ORDERED: MAGNESIUM HYDROXIDE SUSP 30 ML UDC PO PRN (14:03)
[2023-12-11] MEDS ORDERED: NALOXONE HCL 0.4 MG/1 ML VIAL/CARP IV PRN (14:03)
[2023-12-11] MEDS ORDERED: HYDROmorphone INJ 0.5 MG/0.5 ML SYR IV PRN (14:03)
[2023-12-11] MEDS: SODIUM CHLORIDE 0.9% 1,000 ML IV SCH (14:12)
[2023-12-11] MEDS ORDERED: ALBUTEROL HFA 8 GM INHALER INH PRN (14:26)
[2023-12-11] MEDS: Scopolamine CHECK PATCH PLACEMENT SCH (15:34)
[2023-12-11] MEDS: KETOROLAC TROMETHAMINE 15 MG/ML VIAL IV SCH (15:34)
--- NOTE | 2023-12-11 15:34 | XRay Report ---
XR knee RT 1 or 2V routine CLINICAL HISTORY: Postoperative evaluation. COMPARISON: Right knee radiographs November 29, 2023. FINDINGS: Alignment of the total right knee arthroplasty is anatomic. There is no periprosthetic fra cture or unexpected radiopaque foreign body. There are skin ryan. IMPRESSION: Expected findings following total right knee arthroplasty. ACT 112: Negative or not required by law. Electronically signed by: Cruz López M.D. 12/11/2023 3:33 PM
[2023-12-11] MEDS: COUGH DROP (SUGAR FREE) LOZ 24 LOZ/1 BOX BUCCAL ONE (15:35)
[2023-12-11] MEDS: ASCORBIC ACID 500 MG TAB PO SCH (17:31)
[2023-12-11] MEDS: TRANEXAMIC ACID / 0.7% NACL 1,000 MG/100 ML BAG IV SCH (18:16)
[2023-12-11] MEDS: SENNA 8.6 MG TAB PO SCH (19:47)
[2023-12-11] MEDS: DOCUSATE SODIUM 100 MG CAP PO SCH (19:47)
[2023-12-11] MEDS ORDERED: SENNA 8.6 MG TAB PO SCH (21:00)
[2023-12-11] MEDS: oxyCODONE HCL IR 5 MG TAB (IMMEDIATE RELEASE) PO PRN (22:49)
[2023-12-12 07:00] LABS: Hematocrit (blood only) 38.2 % (42.0-52.0); Hemoglobin 12.5 g/dl (14.0-18.0); Mean Corpuscular Hgb Conc 32.7 g/dL (32.0-36.0); Mean Corpuscular Volume 94.8 fL (80.0-100.0); Mean Platelet Volume 11.6 fL (9.4-12.4); Platelet Count 190 K/uL (130-400); RDW Coefficient of Variation 12.3 % (11.5-14.5); RDW Standard Deviation 42.9 fL (36.4-46.3); Red Blood Count 4.03 M/uL (4.70-6.10); White Blood Count 13.96 K/ul (4.8-10.8)
[2023-12-12 07:19] LABS: BUN Creatinine Ratio 15.7 (10-20); Creatinine Clr Calc Pharmacy 94.5 ml/min; Est GFR (Non-African American) 76.8 ml/min
[2023-12-12] MEDS: ADVANCED PROBIOTIC 625 MG CAPSULE PO SCH (07:54)
[2023-12-12] MEDS: MULTIVITAMIN TAB PO SCH (07:55)
[2023-12-12] MEDS: ASPIRIN 81 MG ECTAB PO SCH (07:56)
[2023-12-12] MEDS: ZINC SULFATE 220 MG CAPSULE PO SCH (07:56)
[2023-12-12] MEDS: TAMSULOSIN HCL 0.4 MG CAP PO SCH (07:57)
[2023-12-12] MEDS: dexAMETHasone 10 MG in SYRINGE 0 ML IV SCH (07:59)
[2023-12-12] MEDS ORDERED: NON-FORMULARY MEDICATION (Multivitamin Tablet) PO SCH (09:00)
[2023-12-12] MEDS ORDERED: NON-FORMULARY MEDICATION (Glucos Sul 2kcl-Msm-Chond-C-Mn [Glucosamine Chondroitin] 550-30- PO SCH (09:00)
[2023-12-12] MEDS ORDERED: NON-FORMULARY MEDICATION (Ascorbic Acid (Vitamin C) [Vitamin C] 1,000 mg Tablet) PO SCH (09:00)
[2023-12-12] MEDS ORDERED: DOCUSATE SODIUM 100 MG CAP PO SCH (09:00)
--- NOTE | 2023-12-12 10:22 | Orthopedic Progress Note ---
Date of Service December 12, 2023 Assessment & Plan (1) Status post right knee replacement: Overall, he is doing quite well today with good pain control to the right knee. He will work with physical therapy later this morning to work on ambulation and range of motion exercises. He is currently on Xarelto for DVT prophylaxis. He can be discharged home later this morning pending physical therapy evaluation. He will follow-up with Dr. Avila in 2 weeks for postoperative management. The patient was seen by myself Aris Avila and examined. Agree with the findings as described above. His pain is controlled. He is neurologically intact. Did well in therapy. Should be good to go home with outpatient [facility]. Betty Roth was seen and evaluated this morning resting comfortably in bed in no apparent distress. He notes that his pain is well-controlled to the right knee. He has been up and out of bed with no significant issues. He has yet to work with physical therapy this morning. He denies any other concerns today. Review of Systems All systems reviewed & are unremarkable except as noted in HPI & below. Physical Exam . On physical examination of the right knee, his dressings are clean, dry, and intact. His leg is out in full extension. He has active plantarflexion dorsiflexion to the right ankle. +2 DP and PT pulses. Less than 2-second capillary refill. Normal sensation. Neurovascular intact. Results & Data Results & Data Laboratory Results . Diagnostic Findings . Postoperative x-rays of the right knee show prosthesis to be in anatomical alignment with no signs of fracture complication or loosening. PG Care Time/CCT Total # of Minutes Spent Total Time Spent with Patient: Total time spent is greater than 50% in coordination of care (as documented) at patient's floor/unit and/or counseling patient: Coding Level of Care Code 43279 Post Operative Follow-Up Diagnoses Status post right knee replacement Z96.651
--- NOTE | 2023-12-12 10:24 | Discharge Summary ---
Date of Service December 12, 2023 Principal Diagnosis Same as "Discharge Diagnosis" noted below under Discharge Instructions. Discharge Exam . On physical examination of the right knee, his dressings are clean, dry, and intact. His leg is out in full extension. He has active plantarflexion dorsiflexion to the right ankle. +2 DP and PT pulses. Less than 2-second capillary refill. Normal sensation. Neurovascular intact. Discharge Data Procedures Performed Operation Date: 12/11/23 10:40 Actual Procedures p Right Total Knee Arthroplasty(Right) - Aris Avila MD Ordered Studies 12/11/23 05:00 US - OR guided needle placemen Routine Hospital Course (1) Status post right knee replacement: On December 11, 2023 Gonzalez arrived at [facility] and underwent a right total knee arthroplasty performed by Dr. Avila with no complications. He had a spinal anesthetic. Postoperatively, he was transferred to the PACU for immediate postoperative management and then transferred to the general orthopedic floor in stable condition. His hospital course was uneventful. On postoperative day #1, his vital signs were stable and his pain was well- controlled. He was started on Xarelto for DVT prophylaxis. He participated well with physical therapy working on ambulation and range of motion exercises. He was then discharged home in stable condition. He will follow-up in [address] Avila for postoperative management. PG Care Time/CCT Total # of Minutes Spent Total Time Spent with Patient: Total time spent is greater than 50% in coordination of care (as documented) at patient's floor/unit and/or counseling patient: Discharge Plan Discharge Items Patient Disposition: Home - Home Health Services Reason For Visit: Right Knee Degenerative Joint Disease Discharge Diagnosis: Right Knee Replacement Activity: Per Instructions section Weightbearing: Full weightbearing Non-emergency contact: Surgeon Call non-emergency contact if: you have any medication questions Follow-up/Referrals: Gary Awad [Primary Care Provider] - Diet: Regular Addtl Attending Provider Instructions: ACTIVITY RECOMMENDATIONS: Physical Therapy: * You will go to physical therapy three times each week for four to six weeks after your surgery in order to regain your knee range of motion and to retrain your knee to work properly. * It is just as important to make sure you are getting your knee perfectly straight as it is to regain your knee bend. * Taking a pain pill an hour before therapy can help you have a more productive and comfortable therapy session. Home Exercise: * You were shown a series of exercises (heel props, heel slides, etc.) in the hospital. Do these exercises three to four times each day including the exercises you were shown in physical therapy. Walking: * Get up and walk several times each day. For the first four weeks, try not to stand or walk for more than one hour at a time. If you do stand or walk for more than one hour, you will not hurt anything, but your knee and leg will likely swell. * As you feel comfortable, you may change from the walker or crutches to a cane and then to independent walking. MEDICATIONS: New Medicine: * You will likely be taking one or more of these medications: 1. Oxycodone - A quick and shorter-acting pain medication. Take one to two tablets every six hours to lessen your pain. 2. Xarelto - Thins your blood to lessen the chance of forming a blood clot. * The most common side effects of pain medicine and iron are nausea and constipation. If nausea or constipation is too much of a problem or if you have any questions about your new medicines or doses, call [facility] at . We will try to help you manage these issues. "VERY IMPORTANT TO READ AND REVIEW" Pain: * The immediate post-operative period after knee replacement surgery is often quite painful. * You are given a prescription for pain medicine. You should take it, as directed, when you need it, especially before physical therapy and before going to bed. Pain that interferes with sleep is very common and can last several months. * You will likely need pain medicine for the first four to six weeks. It will not stop all of the pain. The pain will lessen and as you feel better, you may change to milder pain medicine such as Tylenol. * The most common side effects of pain medicine are nausea and constipation, so don't take more than you need. SPECIAL CARE INSTRUCTIONS: TEDs/Elastic Stockings: * The white elastic stockings help limit swelling and prevent blood clots from forming in your legs. The more you wear them, the more they work. * Wear them for six weeks after knee replacement surgery and four weeks after partial knee replacement. Incision Site Care: * Remove dressing postoperative day 2 and then shower. Keep direct shower pressure off the incision site. * After showering, cover ryan with dry gauze and change daily or more frequently if the dressing is getting saturated with drainage. * Use the JOSÉ MIGUEL stockings to hold dressing in place. DO NOT apply tape on the skin. * May completely stop using bandage if wound is dry and no drainage * Trin[place] are removed between 2 and 3 weeks post-op. If your follow-up appointment is made before 2 weeks, please have your appointment re- scheduled. It is too early to remove the ryan. Prevention of Infection: * Take antibiotics one hour before any dental cleaning, dental work, urological procedure, gastrointestinal procedure or any invasive surgery in order to prevent your new joint from getting infected. * You may get the antibiotics from the doctor performing the procedure or you may call our office at [phone] before and we will call in a prescription to the pharmacy of your choice. Things to Watch For: * Drainage from the incision site that occurs more than one week after your surgery. * Severely increased knee/leg pain or swelling. * Increased redness at the incision site. * Fever above 102 degrees Fahrenheit. * Unusual chest pain or shortness of breath. * Unusual pain or burning with urination. Call [facility] at [phone] with any of the above problems or if you have any questions about your medicines or recovery. FOLLOW UP VISIT: Make an appointment to see your doctor for approximately two weeks after surgery for a progress check and staple removal by calling the office at [phone]. Pending Studies at Discharge: No Stand-Alone Forms: [facility], Smoking Cessation Medications and DC Order Prescriptions: Continued sennosides [Senokot] 8.6 mg tablet 8.6 mg PO BID 14 Days Qty: 28 0RF Rx Instructions: Take two times a day to prevent/treat constipation acetaminophen [Tylenol Extra Strength] 500 mg tablet 1,000 mg PO TID 30 Days Qty: 180 0RF Rx Instructions: Take 3 times per day to lessen pain. ondansetron 4 mg tablet,disintegrating 4 mg PO Q8 PRN (Reason: nausea) Qty: 20 1RF Rx Instructions: Take as needed for nausea oxycodone 5 mg tablet 5 - 10 mg PO Q6 PRN (Reason: pain) Qty: 40 0RF Rx Instructions: Take as needed for pain cefadroxil 500 mg capsule 500 mg PO BID 7 Days Qty: 14 0RF Rx Instructions: Take 1 cap twice a day to prevent infection tamsulosin [Flomax] 0.4 mg capsule 0.4 mg PO DAILY Qty: 7 0RF Rx Instructions: Begin night BEFORE surgery to prevent urinary retention Xarelto 10 mg tablet 10 mg PO DAILY 30 Days Qty: 30 0RF Rx Instructions: Take 1 tablet daily for 30 days to prevent blood clots clindamycin HCl 300 mg capsule 600 mg PO ONCE Qty: 2 2RF Rx Instructions: take one hour prior to dental appointment multivitamin Tablet 1 tab PO QAM zinc 50 mg Tablet 50 mg PO QAM Glucosamine Chondroitin 550-30-1 mg Capsule 1 cap PO QAM ascorbic acid (vitamin C) [Vitamin C] 1,000 mg Tablet 1 g PO QAM aspirin 81 mg Tablet 81 mg PO QAM docusate sodium [Colace] 100 mg Capsule 100 mg PO QAM albuterol 90 mcg/actuation Aerosol 90 mcg INHALATION Q4H PRN (Reason: sob) Probiotic 10 billion cell Capsule 10,000 mmu cells PO QAM Discontinued ibuprofen 200 mg Tablet 200 mg PO Q6H PRN (Reason: Pain) diclofenac sodium 75 mg tablet,delayed release (DR/EC) 75 mg PO 4XWK PRN (Reason: Pain) Krames/Other Patient Handouts: Knee Replace Home Recovery Admission Data Admit Date/Time: 12/11/23 13:03 Attending Provider: Aris Avila Admit Provider: Aris Avila Primary Care Provider: Gary Awad Other Interventions: Discharge Summary Assessment (RN) Last Done: 12/12/23 10:05
[2023-12-12] MEDS ORDERED: RIVAROXABAN 10 MG TABLET PO SCH (14:00)
== END 2023-12-12 10:25 | disposition home health service (06) ==
LOC: ASU 09:17 → 3E 09:17

== ENCOUNTER 2024-09-21 06:52 | Observation (INO) ==
[2024-09-21] MEDS: dilTIAZem HCl 5 MG/ML 5 ML VIAL IV STA (07:15)
[2024-09-21] MEDS: SODIUM CHLORIDE 0.9% 500 ML IV ONE (07:15)
[2024-09-21] MEDS: MAGNESIUM SULFATE / D5W 1 GM/100 ML BAG IV STA (07:16)
[2024-09-21 07:27] LABS: Basophils # (auto) 0.08 K/uL (0.00-0.20); Basophils % (auto) 1.2 %; Eosinophils # (auto) 0.15 K/uL (0.00-0.50); Eosinophils % (auto) 2.2 %; Hematocrit (blood only) 50.7 % (42.0-52.0); Hemoglobin 17.1 g/dl (14.0-18.0); Immature Granulocytes # (auto) 0.02 K/uL (0.01-0.20); Immature Granulocytes % (auto) 0.3 %; Lymphocytes # (auto) 1.16 K/uL (1.20-3.40); Lymphocytes % (auto) 17.1 %; Mean Corpuscular Hemoglobin 31.6 pg (25.0-34.0); Mean Corpuscular Hgb Conc 33.7 g/dL (32.0-36.0); Mean Corpuscular Volume 93.7 fL (80.0-100.0); Mean Platelet Volume 11.5 fL (9.4-12.4); Monocytes % (auto) 8.8 %; Neutrophils # (auto) 4.78 K/uL (1.40-6.50); Neutrophils % (auto) 70.4 %; Platelet Count 224 K/uL (130-400); RDW Coefficient of Variation 12.4 % (11.5-14.5); RDW Standard Deviation 42.4 fL (36.4-46.3); Red Blood Count 5.41 M/uL (4.70-6.10); White Blood Count 6.79 K/ul (4.8-10.8)
[2024-09-21 07:40] LABS: Albumin Globulin Ratio 1.4 (0.9-2); Albumin Level 4.3 gm/dl (3.4-5.0); BUN Creatinine Ratio 13.6 (10-20); Bilirubin,Total 0.8 mg/dl (0.2-1.0); Creatinine Clr Calc Pharmacy 86.5 ml/min; Magnesium 1.8 mg/dl (1.7-2.4); Potassium 3.8 mmol/L (3.5-5.1); Total Protein 7.3 gm/dl (6.0-8.3)
[2024-09-21 07:47] LABS: Troponin I High Sensitivity 5.9 pg/ml (0-20)
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
[2024-09-21 07:54] LABS: INR 1.1 (0.9-1.1); Partial Thromboplastin Time 27 Seconds (21-31); Prothrombin Time 11.9 Seconds (9.0-12.0)
[2024-09-21 07:56] LABS: Thyroid Stimulating Hormone 1.209 uIu/ml (0.300-4.500)
--- NOTE | 2024-09-21 08:11 | XRay Report ---
EXAM: XR chest 1V portable CLINICAL HISTORY: Dysrhythmia. TECHNIQUE: An X-ray image of the chest is obtained in AP projection. COMPARISON: 07/09/2023 was reviewed. FINDINGS: Pulmonary Parenchyma: Lungs are clear bilaterally. No evidence of consolidation, collapse, or focal opacities. No pulmonary nodules are identified. No evidence of pleural effusion or pleural thickening. Left basal atelectatic band Mild bilateral prominent bronchovascular markings could be nonspecific or due to mild pulmonary congestion clinical correlation is advised Heart and Mediastinum: Heart size and shape are normal. No mediastinal widening or masses. No hilar or mediastinal lymphadenopathy. Bony Thorax: Bony thorax appears intact without fractures or deformities. Soft Tissues: Soft tissues overlying the chest wall are unremarkable. IMPRESSION: 1. Normal chest X-ray. No acute cardiopulmonary abnormalities are identified. 2. Left basal atelectatic band (new). 3. Mild bilateral prominent bronchovascular markings could be nonspecific or due to mild pulmonary congestion clinical correlation is advised (mildly increased). 4. No other interval changes. Electronically signed by Moisés Conn 09-21-2024 08:11 AM
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
[2024-09-21] MEDS: SODIUM CHLORIDE 0.9% 1,000 ML IV ONE (10:23)
[2024-09-21 11:05] LABS: D Dimer 1140 ug/L FEU (0-500)
[2024-09-21] MEDS: OPTIRAY 320 125ml IV ONE (11:46)
--- NOTE | 2024-09-21 12:07 | CT Scan Report ---
EXAM: CT Angiography Chest With Intravenous Contrast INDICATION: Shortness of breath and arrhythmia. TECHNIQUE: Axial computed tomographic angiography images of the chest with intravenous contrast. Sagittal and coronal reformatted images were created and reviewed. This CT exam was performed using one or more of the following dose reduction techniques: automated exposure control, adjustment of the mA and/or kV according to patient size, and/or use of iterative reconstruction technique. MIP reconstructed images were created and reviewed. CONTRAST: 120hml of Optiray 320 was administered intravenously. COMPARISON: No relevant prior studies available. FINDINGS: Pulmonary arteries: No abnormality noted. No pulmonary embolism. Aorta: Mildly ectatic aorta. Enhancement is not optimized to detect dissection. Lungs and pleural spaces: There is mild bilateral lower lobe and lingular airway thickening and atelectasis. No mass. No significant effusion. Heart: Mild cardiomegaly. No evidence of right ventricular strain. No pericardial effusion. Bones/joints: Degenerative changes noted throughout the spine. No acute osseous abnormality seen. Soft tissues: No abnormality noted. Lymph nodes: No abnormality noted. No enlarged lymph nodes. Gallbladder and bile ducts: Cholecystectomy. Spleen: The spleen is enlarged to approximately 13.6 cm. Kidneys and ureters: Partially imaged hypodensity in the left kidney presumably is a cyst but not completely characterized. IMPRESSION: 1. No pulmonary embolus noted. 2. Mild nonspecific splenomegaly. ACT 112: Negative or not required by law. Electronically signed by Citlalli Brooks 09-21-2024 12:06 PM
[2024-09-21 12:22] LABS: Appearance Urine Clear (Clear); Bilirubin Urine Negative (Negative); Blood Urine Negative (Negative); Color Urine Yellow; Glucose Urine UA Negative (Negative); Ketones Urine Negative (Negative); Leukocyte Esterase Urine Negative (Negative); Nitrite Urine Negative (Negative); Protein Urine Negative (Negative); Specific Gravity Urine 1.014 (1.000-1.030); Urobilinogen Urine Negative (Negative); pH Urine 5.5 (4.5-7.5)
[2024-09-21] MEDS: POTASSIUM CHLORIDE CRTAB 20 MEQ TABCR PO STA (12:40)
[2024-09-21] MEDS ORDERED: ACETAMINOPHEN 325 MG TAB PO PRN (13:11)
[2024-09-21] MEDS ORDERED: DOCUSATE SODIUM 100 MG CAP PO PRN (13:11)
[2024-09-21] MEDS ORDERED: NON-FORMULARY MEDICATION (Albuterol 90 mcg/actuation Aerosol) INH PRN (13:11)
--- NOTE | 2024-09-21 13:14 | Electrocardiogram Report ---
Test Reason : Blood Pressure : */* mmHG Vent. Rate : 95 BPM Atrial Rate : * BPM P-R Int : * ms QRS Dur : 92 ms QT Int : 334 ms P-R-T Axes : * -33 88 degrees QTcB Int : 419 ms Atrial fibrillation Left axis deviation Abnormal ECG When compared with ECG of 29-Nov-2023 10:21, Atrial fibrillation has replaced Sinus rhythm Vent. rate has increased by 40 bpm Confirmed by Jose Bruno ([id number]) on 09/21/2024 1:14:05 PM Referred By: Confirmed By: Jose Bruno
[2024-09-21] MEDS ORDERED: ALBUTEROL HFA 8 GM INHALER INH PRN (13:15)
--- NOTE | 2024-09-21 13:20 | XCELERA ---
[id number]
[2024-09-21] MEDS: APIXABAN 5 MG TABLET PO STA (14:20)
--- NOTE | 2024-09-21 18:43 | Ultrasound Report ---
EXAM: US Duplex Bilateral Lower Extremities Veins INDICATION: Recent travel. Elevated D-dimer. TECHNIQUE: Real-time duplex ultrasound scan of the bilateral lower extremity veins integrating B-mode two-dimensional vascular structure, Doppler spectral analysis, color flow Doppler imaging and compression. COMPARISON: No relevant prior studies available. FINDINGS: Right deep veins: No DVT in the right common femoral, femoral or popliteal veins. The veins demonstrate normal color flow, are normally compressible, with normal phasic flow and/or augmentation response. Right superficial veins: No abnormality noted. No thrombus in the visualized right great saphenous vein. Left deep veins: No DVT in the left common femoral, femoral or popliteal veins. The veins demonstrate normal color flow, are normally compressible, with normal phasic flow and/or augmentation response. Left superficial veins: No abnormality noted. No thrombus in the visualized left great saphenous vein. Soft tissues: Imaging includes a point of interest along the medial ankle. No soft tissue abnormality or fluid collection noted. IMPRESSION: No deep venous thrombosis of either lower extremity. Sluggish venous flow is identified ACT 112: Negative or not required by law. Electronically signed by Citlalli Brooks 09-21-2024 6:43 PM
[2024-09-21] MEDS: METOPROLOL TARTRATE 25 MG TAB PO SCH (20:11)
[2024-09-21] MEDS: APIXABAN 5 MG TABLET PO SCH (22:24)
[2024-09-22 06:23] LABS: Basophils # (auto) 0.06 K/uL (0.00-0.20); Basophils % (auto) 1.1 %; Eosinophils # (auto) 0.17 K/uL (0.00-0.50); Eosinophils % (auto) 3.1 %; Hematocrit (blood only) 46.7 % (42.0-52.0); Hemoglobin 16.2 g/dl (14.0-18.0); Immature Granulocytes # (auto) 0.02 K/uL (0.01-0.20); Immature Granulocytes % (auto) 0.4 %; Lymphocytes # (auto) 1.41 K/uL (1.20-3.40); Lymphocytes % (auto) 25.6 %; Mean Corpuscular Hemoglobin 32.2 pg (25.0-34.0); Mean Corpuscular Hgb Conc 34.7 g/dL (32.0-36.0); Mean Corpuscular Volume 92.8 fL (80.0-100.0); Mean Platelet Volume 11.6 fL (9.4-12.4); Monocytes % (auto) 10.9 %; Neutrophils # (auto) 3.24 K/uL (1.40-6.50); Neutrophils % (auto) 58.9 %; Platelet Count 178 K/uL (130-400); RDW Coefficient of Variation 12.2 % (11.5-14.5); Red Blood Count 5.03 M/uL (4.70-6.10)
[2024-09-22 06:39] LABS: BUN Creatinine Ratio 14.4 (10-20); Calcium 9.8 mg/dl (8.6-10.3); Creatinine Clr Calc Pharmacy 90.4 ml/min; Potassium 4.6 mmol/L (3.5-5.1)
[2024-09-22 07:29] VITALS: RESP 18; TEMP 97.5; O2SAT 96
[2024-09-22] MEDS ORDERED: Nursing to Pharmacy Communication SCH (08:30)
[2024-09-22] MEDS: ASPIRIN 81 MG ECTAB PO SCH (09:12)
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
[2024-09-22 09:58] VITALS: BP 101/71; PULSE 74
--- NOTE | 2024-09-22 11:36 | Electrocardiogram Report ---
Test Reason : Blood Pressure : */* mmHG Vent. Rate : 58 BPM Atrial Rate : 58 BPM P-R Int : 182 ms QRS Dur : 96 ms QT Int : 424 ms P-R-T Axes : 26 -34 28 degrees QTcB Int : 416 ms Sinus bradycardia Left axis deviation Poor R wave progression, consider anterior MS vs. lead placement vs. LVH Abnormal ECG When compared with ECG of 21-Sep-2024 07:05, Sinus rhythm has replaced Atrial fibrillation Vent. rate has decreased by 37 bpm Confirmed by Basil Yun ([id number]) on 09/22/2024 11:36:13 AM Referred By: REFERRED SELF Confirmed By: Basil Yun
--- NOTE | 2024-10-10 12:35 | Coding Query ---
A supporting diagnosis is required for the test/procedure performed on this patient in order for us to be reimbursed by the patient's insurance. Please provide a supporting diagnosis for the following test/procedure listed below next to the test name along with your signature. *If there is no additional diagnosis for this patient that would support the following test/procedure please document that below next to the test/procedure. Test(s)/Procedure(s) that require a supporting diagnosis: * [address]7528, bilateral lower extremity venous duplex DIAGNOSIS: Z86.718Personal history of venous thrombosis and embolism. R22.43for Localized swelling LLE Provider Signature: ____Tristen George Date: __10/12/24 Thank you Luciana Zavala Health Information Management Once completed, please kindly fax back to [phone] For questions please call [phone] JONELLE
== END 2024-09-22 10:27 | disposition home or self-care (01) ==
LOC: 2N 06:52 → ED 06:52 → SUATTDRO 11:26 → 2N 12:55